=== PATIENT | female | born 1980 | race Two or more races ===

== ENCOUNTER → 2024-04-01 | Outpatient (CLI) | payer MEDICAID, SELFPAY ==
--- NOTE | 2024-04-01 13:30 | XR_ITS ---
Examination: Breast ultrasound complete, bilateral Date and time of exam: April 01, 2024 1338 hours INDICATIONS: Mammogram December 13, 2023 10 mm focal asymmetry outer left breast CC view, 5.5 cm from the nipple Technique: Real-time grayscale ultrasonographic imaging bilateral breasts, including all 4 quadrants as well as nipple retroareolar and axillary regions. Findings: Sonographic images right breast 9:00 cyst 4 x 4 millimeter 11:00 cyst 13 x 10 mm No solid nodules Sonographic images left breast 2:00 oval mass indistinct margins 10 x 4 x 8 mm 3:00 oval mass circumscribed 5 x 5 mm 6:00 cyst 23 x 17 mm 7:00 oval mass circumscribed 5 x 5 mm 9:00 oval mass circumscribed 6 x 5 mm IMPRESSION: BI-RADS Category 4: Suspicious for malignancy Suspicious nodule left breast 2:00 10 x 4 x 8 mm, biopsy of this nodule is needed to exclude breast carcinoma This nodule is amenable to ultrasound-guided breast biopsy for diagnosis
--- NOTE | 2024-04-01 14:30 | XR_ITS ---
Examination: Diagnostic digital mammography, unilateral, Left breast sonogram today demonstrates BI-RADS 4 suspicious mass 2:00 position left breast Computer aided detection 3-D breast Tomosynthesis, unilateral Date and time of exam: April 01, 2024 1336 hours INDICATIONS: Mammogram December 13, 2023 10 mm focal asymmetry outer left breast CC view, 5.7 cm from the nipple Technique: Nonmagnified MLO, CC views of the left breast have been obtained, reconstructed from 3-D Tomosynthesis images. R2 computer aided detection program utilized for evaluation of suspicious masses and/or abnormal calcifications. 3-D Tomosynthesis images obtained. Findings: The breast is heterogeneously dense, which may obscure small masses Spot compression views do not confirm definite suspicious mass However, please see the left breast sonogram report today indicating BI-RADS 4 suspicious nodule 2:00 position left breast Impression: BI-RADS category 4: Suspicious for malignancy Left breast sonogram report today indicates BI-RADS 4 suspicious mass 2:00 position left breast requiring ultrasound-guided left breast biopsy
== END | disposition home or self-care (01) ==
PROVIDERS: PCP Student in an Organized Health Care Education/Training Program; Referring Provider Student in an Organized Health Care Education/Training Program; Visit Provider Student in an Organized Health Care Education/Training Program
DX: R92.342 Mammographic extreme density, left breast (principal); N63.21 Unspecified lump in the left breast, upper outer quadrant
CPT/HCPCS: 76641; 77061; 77065; G0279

== ENCOUNTER 2024-08-17 15:26 | Emergency (ER) | payer MEDICAID, SELFPAY ==
[2024-08-17 15:46] VITALS: BP 105/68; PULSE 89; RESP 20; TEMP 36.8; O2SAT 99; BMI 22.6
--- NOTE | 2024-08-17 15:48 | XR_ITS ---
Examination: CT abdomen and pelvis without contrast. Coronal 3-D reconstructions. Sagittal 2-D reconstructions. Date and time of exam:August 17, 2024 at 1756 hrs. Indications: Onset left-sided flank pain today CTDI: vol (mGy): 6 DLP: (mGycm): 345 Technique: Axial images of the abdomen have been obtained, 3 mm slice thickness Intravenous contrast material has not been administered. Low dose protocols were performed. One or more of the following dose reduction techniques were used; automated exposure control, adjustment of the mA and/or KV according to patient size, use of iterative reconstruction technique. Findings: No focal liver or splenic lesions Contracted gallbladder No pancreatic or adrenal mass. No renal or ureteral calculi, no hydronephrosis Normal appendix No bowel obstruction No pelvic mass No bladder mass or bladder calculi Impression: No renal or ureteral calculi, no hydronephrosis Normal appendix No bladder mass or bladder calculi
--- NOTE | 2024-08-17 15:49 | PD.EDRME ---
Rapid Medical Screening Exam RME Arrival date/time: 08/17/24 15:26 44-year-old female presents the emergency department complaint of left flank pain and nausea Chief Complaint: Nausea/Vomiting/Diarrhea Time Seen by Provider: 08/17/24 15:38 Vital signs: Vital Signs Temperature 98.3 F 08/17/24 15:46 Pulse Rate 89 08/17/24 15:46 Respiratory Rate 20 08/17/24 15:46 Blood Pressure 105/68 08/17/24 15:46 Pulse Oximetry (%) 99 08/17/24 15:46 Oxygen Delivery Method Room Air 08/17/24 15:46
[2024-08-17] MEDS: ONDANSETRON ODT 4 MG TABRAP PO (16:02)
[2024-08-17] MEDS: KETOROLAC INJ 30 MG/ML VIAL IM (16:02)
[2024-08-17 16:50] LABS: Basophils % (Auto) 0 % (0-2.5); Eosinophils % (Auto) 1 % (0-10); Hematocrit 38.9 % (36.0-46.0); Hemoglobin 13.3 g/dL (12.0-16.0); Immature Granulocytes % (Auto) 0 % (0-0); Immature Granulocytes Auto 0.01 Thou/mm3 (0.00-0.00); Lymphocytes # (Auto) 1.8 Thou/mm3 (1.0-4.8); Lymphocytes % (Auto) 29 % (10-50); Mean Corpuscular HGB Conc 34.2 g/dl (31.0-37.0); Mean Corpuscular Hemoglobin 32.6 pg (25.0-35.0); Mean Corpuscular Volume 95 fL (80-100); Monocytes # (Auto) 0.3 Thou/mm3 (0.0-0.8); Monocytes % (Auto) 5 % (0-12); Neutrophils # (Auto) 4.1 Thou/mm3 (1.8-7.7); Neutrophils % (Auto) 65 % (37-80); Nucleated Red Blood Cell % 0 /100 WBC (0); Platelet Count 207 Thou/mm3 (140-440); RDW Standard Deviation 43.5 fL (36.4-46.3); Red Blood Count 4.08 Miln/mm3 (4.00-5.20); White Blood Count 6.3 Thou/mm3 (3.6-11.0)
[2024-08-17 17:15] LABS: Collection Type, Urine Clean Catch
[2024-08-17 17:28] LABS: Alanine Aminotransferase 10 U/L (10-49); Albumin, Serum 4.3 gm/dL (3.5-5.0); Albumin/Globulin Ratio 1.6 (1.2-2.2); Alkaline Phosphatase 75 U/L (46-116); Anion Gap 7 (7-16); Aspartate Amino Transferase 17 U/L (0-34); BUN/Creatinine Ratio 11 Ratio (12-20); Bilirubin,Total 0.4 mg/dL (0.3-1.2); Blood Urea Nitrogen 9 mg/dL (9-23); Calcium 9.2 mg/dL (8.3-10.6); Calcium (Corrected) 9.2 mg/dL (8.5-10.1); Carbon Dioxide 27.5 mMol/L (20.0-31.0); Chloride 110 mMol/L (98-107); Creatinine (Component) 0.8 mg/dL (0.6-1.3); Estimated Creatinine Clearance 82.4 mL/min (>60); Globulin 2.7 gm/dL (2.3-3.5); Glucose 92 mg/dL (74-106); Lipase 32 U/L (12-53); Osmolality,Calculated 285 (275-295); Sodium 144 mMol/L (136-145); eGFR > 60 See Note
[2024-08-17 17:45] LABS: HCG Qualitative,Urine Negative
[2024-08-17 17:55] LABS: Bacteria,Urine Rare; Bilirubin,Urine Negative (Negative); Blood,Urine 2+ (Negative); Color,Urine Colorless (Lt Yel-Yel); Culture Indicated,Urine Not Indicated; Glucose, Urine Negative (Negative); Ketones,Urine Negative (Negative); Leukocyte Esterase,Urine Positive (Negative); Nitrite,Urine Negative (Negative); PH,Urine 6.5 (5.0-7.0); Protein,Urine Negative (Neg - Trace); RBC,Urine 2 /hpf (0-3); Specific Gravity,Urine 1.005 (1.001-1.035); Squamous Epithelial Cell,Urine 6 /hpf (0-5); Urobilinogen,Urine Negative mg/dL (0.0-1.0); WBC,Urine 3 /hpf (0-5)
[2024-08-17 17:56] LABS: Clarity,Urine Hazy (Clear/Hazy)
--- NOTE | 2024-08-17 19:09 | PD.EDBACK ---
ED Back Injury Pain RME/HPI General Chief Complaint: Nausea/Vomiting/Diarrhea Stated Complaint: PAIN L) FLANK, NAUSEA Time Seen by Provider: 08/17/24 15:38 Arrival date/time: 08/17/24 15:26 RME / HPI RME / HPI Narrative: 08/17/24 15:26 44-year-old female presents the emergency department complaint of left flank pain and nausea This section includes all my notes and documentations, including HPI, PE, and ED course. Abdi Fong MD HPI: 44-year-old female here with several days of pain in the left flank region. Worse with certain movement. Occasional nausea. No fever. No urinary symptoms. No other complaints. ROS: All negative except as documented in HPI. Physical Exam: General: Alert and oriented. Appears uncomfortable. Eyes: Conjunctivae and lids clear. ENT: No nasal congestion. Neck: Supple. Lungs: No respiratory distress. Abdomen: Soft and nontender. Normal bowel sounds. No distension. No rebound or guarding. Back: No CVA tenderness. Severe left spinal muscle spasm noted. Skin: Warm and dry. Neuro: Alert and oriented X 3. I reviewed all diagnostic test results. My review of the abdominal CT report is NAD. Blood tests and urine tests unremarkable. At this point, diagnoses include back musculoskeletal pain. Treatment here from me included Zofran ODT and two [place] 5/325 mg. She felt better. Recommended conservative management. Based on my best medical judgment, made decision no further evaluation or treatment indicated at this time. Patient understands and agrees to the discharge instructions customized and printed, see below. Discharge Instructions from Dr. Fong printed for you: 1. After extensive evaluation, there is no very serious condition or infection. Such as kidney stone or kidney infection. 2. Your pain is originating from the outside due to muscle spasm, not from internal organ. 3. Activity as tolerated. 4. Apply ice or heat if helpful. 5. Ibuprofen 600 mg every 6-8 hours today and tomorrow to decrease inflammation then as needed. 6. Tylenol with codeine and cyclobenzaprine and lidocaine patches as needed. 7. See a private doctor on 08/22/2024 if not completely better. Ask to review all test results and official radiology reports, to make sure you receive all necessary follow-ups and monitoring. Ask for help until you are completely better. 8. Seek immediate medical care with worsening or with any concerns. Instrucciones de santa del Dr. Fong, impresas para usted: 1. Tras mitzi evaluaci?n exhaustiva, no se observa ninguna afecci?n ni infecci?n grave, nahomy c?lculos renales o infecci?n renal. 2. El dolor proviene del exterior debido a un espasmo muscular, no de un ?rgano interno. 3. Realice la actividad que tolere. 4. Aplique hielo o calor si le resulta ?til. 5. Ibuprofeno 600 mg cada 6-8 horas hoy y ma?erlinda para reducir la inflamaci?n, y luego, seg?n sea necesario. 6. Parches de Tylenol con code?na, ciclobenzaprina y lidoca?na, seg?n sea necesario. 7. Consulte con un m?dico particular el 22/08/2024 si no mejora por completo. Solicite la revisi?n de todos los resultados de las pruebas y los informes radiol?gicos oficiales para asegurarse de recibir todos los controles y monitoreo necesarios. Solicite ayuda hasta que se recupere por completo. 8. Busque atenci?n m?dica inmediata si presenta empeoramiento o si tiene alguna inquietud. Abdi Fong MD Related Data Previous Rx's ?Medication ?Instructions ?Recorded acetaminophen 300 mg-codeine 30 mg 2 tab PO Q8H PRN pain #20 tabs 08/17/24 tablet cyclobenzaprine 5 mg tablet 5 mg PO TID PRN muscle spasm #15 08/17/24 tabs ibuprofen 600 mg tablet 600 mg PO TID PRN fever or pain 08/17/24 #30 tabs lidocaine 5 % topical patch 2 patch topical QDAY PRN pain #30 08/17/24 (Lidoderm) ea Allergies Allergy/AdvReac Type Severity Reaction Status Date / Time No Known Allergies Allergy Verified 08/17/24 15:29 Review of Systems Review of Systems Systems Reviewed: All systems reviewed, normal except as documented Narrative Review of Systems: Refer to HPI above. Past Medical History Social History SMOKING STATUS: Never smoker Course Quality Measures none Orders Category Date Time Status CT abdomen pelvis wo con Stat Exams 08/17/24 15:48 Completed CBC Stat Lab 08/17/24 16:09 Completed Comprehensive Metabolic Panel Stat Lab 08/17/24 16:09 Completed HCG Qualitative,Urine Stat Lab 08/17/24 16:51 Completed Lipase Stat Lab 08/17/24 16:09 Completed UA, C/S IF [Urinalysis, C/S if Indicated] Stat Lab 08/17/24 16:51 Completed ACETAMINOPHEN w/COD 300-30 [Tylenol w/Cod #3] Med 08/17/24 19:08 Discontinued 2 tab PO X1 ONE Ketorolac Inj [Toradol Inj] Med 08/17/24 15:48 Discontinued 30 mg IM X1 ONE Ondansetron Odt [Zofran Odt] Med 08/17/24 15:48 Discontinued 4 mg PO X1 ONE Vital Signs Vital signs: Vital Signs Temperature 98.3 F 08/17/24 15:46 Pulse Rate 89 08/17/24 15:46 Respiratory Rate 20 08/17/24 15:46 Blood Pressure 105/68 08/17/24 15:46 Pulse Oximetry (%) 99 08/17/24 15:46 Oxygen Delivery Method Room Air 08/17/24 15:46 Back Pain / Injury MDM Narrative MDM Narrative:: Scribe Attestation: Yanique Curry am scribing for and in the presence of Dr. Fong. Provider Notation: Although this document has been carefully reviewed, there may still be some phonetic and other typographical errors. These errors are purely grammatical due to imperfections in the software program and should not be construed in any way to compromise the substance of the patient's medical care during this visit. Patient data External records reviewed:: [facility] previous records Clinical information provided by:: patient Social determinants that could affect healthcare access:: none Patient has the following chronic illnesses:: None How is presenting disease/condition affected by chronic disease/condition?: no chronic disease Evaluation data The following diagnostics were reviewed and interpreted by me:: lab results and radiology exam(s) Lab and/or radiology exams considered but not ordered:: None. Interpretation Summary: Muscle spasm Medications / Prescriptions Medications or Prescriptions considered but not ordered:: None Medication administrations:: Medication Administration History Discontinued Medications Acetaminophen/Codeine Phosphate (Acetaminophen W/Cod 300-30 Tablet) 2 tab PO X1 ONE Stop: 08/17/24 19:09 Ketorolac Tromethamine (Ketorolac Inj 30 Mg/Ml Vial) 30 mg IM X1 ONE Stop: 08/17/24 15:49 Last Admin: 08/17/24 16:02 Dose: 30 mg Documented By: BERNICE Ondansetron HCl (Ondansetron Odt 4 Mg Tabrap) 4 mg PO X1 ONE; Protocol Stop: 08/17/24 15:49 Last Admin: 08/17/24 16:02 Dose: 4 mg Documented By: BERNICE [place] Zofran ODT and two [place] 5/325 mg. Consultations Consultation(s) initiated? (list below): No Diagnosis Differential diagnosis back pain/injury: lumbar radiculopathy, sciatica, strain of lumbar region, renal colic, pyelonephritis and thoracic back pain Most likely diagnosis given after review of the tests above:: Muscle spasm Admission Indicated Admission indicated?: not indicated Explain why admission is indicated or not indicated:: There was no indication for admission. Admission Request Was there a request for admission?: No Disposition Plan Disposition Plan: Discharge Discharge Attestation Discharge Attestation: The patient and all family members were given an opportunity to ask questions and understood the discharge instructions. Discharge instructions specifically effects, indications for sooner follow up or return to the emergency department, and the expected course of current diagnosis. Patient condition: Stable Discharge Plan Plan Patient Disposition: HOME (Self Care) Prescriptions/Referrals Prescriptions/Med Rec: New acetaminophen-codeine 300-30 mg tablet 2 tab PO Q8H MDD 6 PRN (Reason: pain) Qty: 20 0RF lidocaine [Lidoderm] 5 % adhesive patch,medicated 2 patch topical QDAY PRN (Reason: pain) Qty: 30 0RF Rx Instructions: leave on most painful area for up to 12 hrs ibuprofen 600 mg tablet 600 mg PO TID PRN (Reason: fever or pain) Qty: 30 0RF cyclobenzaprine 5 mg tablet 5 mg PO TID PRN (Reason: muscle spasm) Qty: 15 0RF Referrals: No Primary/Family,Physician [Primary Care Provider] - In 1 week Problem List Clinical Impression: Back muscle spasm Patient/Caregiver Discharge Instructions Discharge Activity: activity as tolerated Education Materials: ED Muscle Spasm Additional Instructions: Discharge Instructions from Dr. Fong printed for you: 1. After extensive evaluation, there is no very serious condition or infection. Such as kidney stone or kidney infection. 2. Your pain is originating from the outside due to muscle spasm, not from internal organ. 3. Activity as tolerated. 4. Apply ice or heat if helpful. 5. Ibuprofen 600 mg every 6-8 hours today and tomorrow to decrease inflammation then as needed. 6. Tylenol with codeine and cyclobenzaprine and lidocaine patches as needed. 7. See a private doctor on 08/22/2024 if not completely better. Ask to review all test results and official radiology reports, to make sure you receive all necessary follow-ups and monitoring. Ask for help until you are completely better. 8. Seek immediate medical care with worsening or with any concerns. Instrucciones de santa del Dr. Fong, impresas para usted: 1. Tras mitzi evaluaci?n exhaustiva, no se observa ninguna afecci?n ni infecci?n grave, nahomy c?lculos renales o infecci?n renal. 2. El dolor proviene del exterior debido a un espasmo muscular, no de un ?rgano interno. 3. Realice la actividad que tolere. 4. Aplique hielo o calor si le resulta ?til. 5. Ibuprofeno 600 mg cada 6-8 horas hoy y ma?erlinda para reducir la inflamaci?n, y luego, seg?n sea necesario. 6. Parches de Tylenol con code?na, ciclobenzaprina y lidoca?na, seg?n sea necesario. 7. Consulte con un m?dico particular el 22/08/2024 si no mejora por completo. Solicite la revisi?n de todos los resultados de las pruebas y los informes radiol?gicos oficiales para asegurarse de recibir todos los controles y monitoreo necesarios. Solicite ayuda hasta que se recupere por completo. 8. Busque atenci?n m?dica inmediata si presenta empeoramiento o si tiene alguna inquietud. Print Language: Polish Stand Alone Forms: [employer] Award Info., Patient Portal Info Letter
[2024-08-17] MEDS: ACETAMINOPHEN w/COD 300-30 TABLET 2 TAB PO (19:26)
[2024-08-17 19:28] VITALS: BP 113/72; PULSE 66; RESP 18; O2SAT 100
== END 2024-08-17 19:31 | disposition home or self-care (01) ==
PROVIDERS: Nurse Practitioner Primary Care; Emergency Provider Emergency Medicine
DX: M62.830 Muscle spasm of back (principal)
CPT/HCPCS: 36415; 74176; 80053; 81001; 81025; 83690; 85025; 96372; 99284; J1885; Q0162; A9270

== ENCOUNTER → 2024-10-21 | Outpatient (CLI) | payer MEDICAID, SELFPAY ==
[2024-10-20 11:39] LABS: Basophils % (Auto) 0 % (0-2.5); Eosinophils # (Auto) 0.1 Thou/mm3 (0.0-0.5); Eosinophils % (Auto) 1 % (0-10); Hemoglobin 14.4 g/dL (12.0-16.0); Immature Granulocytes % (Auto) 0 % (0-0); Immature Granulocytes Auto 0.02 Thou/mm3 (0.00-0.00); Lymphocytes # (Auto) 1.8 Thou/mm3 (1.0-4.8); Lymphocytes % (Auto) 30 % (10-50); Mean Corpuscular HGB Conc 33.5 g/dl (31.0-37.0); Mean Corpuscular Hemoglobin 32.1 pg (25.0-35.0); Mean Corpuscular Volume 96 fL (80-100); Monocytes # (Auto) 0.4 Thou/mm3 (0.0-0.8); Monocytes % (Auto) 6 % (0-12); Neutrophils # (Auto) 3.8 Thou/mm3 (1.8-7.7); Neutrophils % (Auto) 63 % (37-80); Nucleated Red Blood Cell % 0 /100 WBC (0); Platelet Count 215 Thou/mm3 (140-440); Red Blood Count 4.48 Miln/mm3 (4.00-5.20)
[2024-10-20 11:48] LABS: Partial Thromboplastin Time 26.2 Seconds (22.0-36.0); Prothrombin Time 10.7 Seconds (9.0-12.2)
[2024-10-20 11:59] LABS: HCG,Qualitative Serum Negative
--- NOTE | 2024-10-21 08:30 | XR_ITS ---
Examination: Breast ultrasound limited, left Date and time of exam: October 21, 2024 0919 hours INDICATIONS: Left breast sonogram April 01, 2024 BI-RADS 4 suspicious nodule 2:00 position left breast Technique: Real time ecvallos scale ultrasonographic imaging of the breast , retroarelar and axillary region. Findings: Sonographic images left breast demonstrate small benign cysts no suspicious solid nodule Impression: BI-RADS Category 2: Benign findings
== END | disposition home or self-care (01) ==
LOC: SDIM 07:23
PROVIDERS: Radiology Diagnostic Radiology; PCP Physician Assistant; Referring Provider Physician Assistant; Visit Provider Physician Assistant
DX: N60.12 Diffuse cystic mastopathy of left breast (principal)
CPT/HCPCS: 36415; 76642; 84703; 85025; 85610; 85730